=== PATIENT | male | born 1945 | race Caucasian/White ===

== ENCOUNTER 2018-11-07 15:17 | Emergency (ER) | payer MEDICARE, BC ==
[2018-11-07] MEDS ORDERED: NS 0.9% 1000 ML* 1,000 ML IV ONE (16:07)
[2018-11-07] MEDS ORDERED: Ondansetron ODT TAB* 4 MG PO ONE ×2 (16:07→19:44)
[2018-11-07 16:08] LABS: ABS Basophils 0 10^3/ul (0-0.2); ABS Eosinophils 0.1 10^3/ul (0-0.6); ABS Lymphocytes 0.5 10^3/ul (1.0-4.8); ABS Monocytes 0.4 10^3/ul (0-0.8); ABS Neutrophils 10.4 10^3/ul (1.5-7.7); ABS Nucleated RBC 0 10^3/ul; Eosinophil % 0.6 %; Hematocrit 43 % (42-52); Hemoglobin 14.4 g/dl (14.0-18.0); Lymphocyte % 4.2 %; Mean Corpuscular HGB Conc 34 g/dl (31-36); Mean Corpuscular Hemoglobin 31 pg (27-31); Mean Corpuscular Volume 92 fL (80-94); Mean Platelet Volume 9.5 fL (7.4-10.4); Nucleated Red Blood Cells % 0; Platelet Count 171 10^3/ul (150-450); Red Blood Count 4.67 10^6/ul (4.00-5.40); Red Cell Distribution Width 13 % (10.5-15); White Blood Count 11.4 10^3/ul (3.5-10.8)
[2018-11-07 16:23] LABS: Albumin/Globulin Ratio 1.4 (1-3); C Reactive Protein 18.93 mg/L (<8.01); Calcium 9.1 mg/dL (8.6-10.3); EGFR Non-African American 109.1 (>60); Globulin 2.8 g/dL (2-4); Potassium 4.1 mmol/L (3.5-5.0); Total Bilirubin 0.8 mg/dL (0.2-1.0); Total Protein 6.8 g/dL (6.4-8.9)
[2018-11-07 16:35] LABS: Urine Appearance Cloudy; Urine Bacteria Absent (Absent); Urine Bilirubin Negative (Negative); Urine Blood 1+ (Negative); Urine Color Amber; Urine Glucose Negative (Negative); Urine Ketones 1+ (Negative); Urine Nitrite Negative (Negative); Urine Protein 1+(30 mg/dL) (Negative); Urine Red Blood Cell 2+(6-10/hpf) (Absent); Urine Specific Gravity 1.029 (1.010-1.030); Urine Urobilinogen Negative (Negative); Urine White Blood Cell 1+(6-10/hpf) (Absent)
--- NOTE | 2018-11-07 18:01 | ED ---
Nausea/Vomiting/Diarrhea HPI - HPI Summary HPI Summary: Patient complains of 3 episodes of vomiting today, which last 2 episodes emesis positive for blood. Family states about 2-3 tablespoons of blood in third emesis. First emesis at 5:30 AM, second emesis 11:30 AM, third emesis at 3 PM. Denies persistent nausea, nausea only just prior to vomiting. No anti-coag. Patient denies fever, abdominal pain, blood in stool, symptoms of illness, cough , sore throat, CP, SOB, diarrhea, urine symptoms. Medical history COPD. Abdominal surgical history is none. Positive smoker. Denies EtOH, recreational drug use. - History of Current Complaint Chief Complaint: EDNauseaVomitDiarrh Stated Complaint: VOMITTING BLOOD Time Seen by Provider: 11/07/18 15:47 Hx Obtained From: Patient, Family/Plate Straightener Onset/Duration: Sudden Onset Timing: Intermittent Episodes Lasting: Severity Currently: None Pain Intensity: 0 Pain Scale Used: 0-10 Numeric Aggravating Factor(s): Nothing Alleviating Factor(s): Nothing Nausea/Vomiting Presence: Vomiting Vomiting Frequency: Every 3-4 hours Vomiting Characteristics: Nonbilious Diarrhea Presence: No - Allergies/Home Medications Allergies/Adverse Reactions: Allergies Allergy/AdvReac Type Severity Reaction Status Date / Time lactase [From [employer]] Allergy GI Upset Verified 11/07/18 15:26 PMH/Surg Hx/FS Hx/Imm Hx Endocrine/Hematology History: Denies: Hx Anticoagulant Therapy Cardiovascular History: Denies: Hx Cardiac Arrest History: Denies: Hx Dialysis EENT History: Denies: Hx Deafness Neurological History: Denies: Hx CVA Psychiatric History: Denies: Hx Autism Infectious Disease History: No Infectious Disease History: Denies: Traveled Outside the [place] in Last 30 Days - Family History Known Family History: Positive: Unknown - Social History Occupation: Employed Full-time Lives: With Family Alcohol Use: None Substance Use Type: Reports: None Smoking Status (MU): Light Every Day Tobacco Smoker Review of Systems Constitutional: Negative Eyes: Negative ENT: Negative Cardiovascular: Negative Respiratory: Negative Positive: Vomiting, Nausea Genitourinary: Negative Musculoskeletal: Negative Skin: Negative Neurological: Negative Psychological: Normal All Other Systems Reviewed And Are Negative: Yes Physical Exam Triage Information Reviewed: Yes Vital Signs On Initial Exam: Initial Vitals Temp Pulse Resp BP Pulse Ox 98.5 F 106 16 124/78 94 11/07/18 15:21 11/07/18 15:21 11/07/18 15:21 11/07/18 15:21 11/07/18 15:21 Vital Signs Reviewed: Yes Appearance: Positive: Well-Appearing Skin: Positive: Warm Head/Face: Positive: Normal Head/Face Inspection Eyes: Positive: Normal ENT: Positive: Normal ENT inspection Neck: Positive: Supple Respiratory/Lung Sounds: Positive: Clear to Auscultation Cardiovascular: Positive: Normal Abdomen Description: Positive: Nontender Musculoskeletal: Positive: Normal Neurological: Positive: Normal Psychiatric: Positive: Normal AVPU Assessment: Alert - [place] Coma Scale Best Eye Response: 4 - Spontaneous Best Motor Response: 6 - Obeys Commands Best Verbal Response: 5 - Oriented Coma Scale Total: 15 Diagnostics - Vital Signs Vital Signs Temp Pulse Resp BP Pulse Ox 11/07/18 17:04 74 118/67 95 11/07/18 17:00 73 94 11/07/18 16:34 93 110/70 95 11/07/18 16:05 109 136/68 95 11/07/18 16:00 87 94 11/07/18 15:47 88 96 11/07/18 15:21 98.5 F 106 16 124/78 94 - Laboratory Lab Results: Lab Results 11/07/18 11/07/18 11/07/18 Range/Units 16:00 16:00 16:20 WBC 11.4 H (3.5-10.8) 10^3/ul RBC 4.67 (4.00-5.40) 10^6/ul Hgb 14.4 (14.0-18.0) g/dl Hct 43 (42-52) % MCV 92 (80-94) fL MCH 31 (27-31) pg MCHC 34 (31-36) g/dl RDW 13 (10.5-15) % Plt Count 171 (150-450) 10^3/ul MPV 9.5 (7.4-10.4) fL Neut % (Auto) 91.4 % Lymph % (Auto) 4.2 % [place] % (Auto) 3.7 % Eos % (Auto) 0.6 % Baso % (Auto) 0.1 % Absolute Neuts (auto) 10.4 H (1.5-7.7) 10^3/ul Absolute Lymphs (auto) 0.5 L (1.0-4.8) 10^3/ul Absolute Monos (auto) 0.4 (0-0.8) 10^3/ul Absolute Eos (auto) 0.1 (0-0.6) 10^3/ul Absolute Basos (auto) 0 (0-0.2) 10^3/ul Absolute Nucleated RBC 0 10^3/ul Nucleated RBC % 0 Sodium 138 (135-145) mmol/L Potassium 4.1 (3.5-5.0) mmol/L Chloride 104 (101-111) mmol/L Carbon Dioxide 26 (22-32) mmol/L Anion Gap 8 (2-11) mmol/L BUN 22 (6-24) mg/dL Creatinine 0.71 (0.67-1.17) mg/dL Est GFR ( Amer) 132.0 (>60) Est GFR (Non-Af Amer) 109.1 (>60) BUN/Creatinine Ratio 31.0 H (8-20) Glucose 120 H (70-100) mg/dL Calcium 9.1 (8.6-10.3) mg/dL Total Bilirubin 0.80 (0.2-1.0) mg/dL AST 21 (13-39) U/L ALT 16 (7-52) U/L Alkaline Phosphatase 63 (34-104) U/L C-Reactive Protein 18.93 H (<8.01) mg/L Total Protein 6.8 (6.4-8.9) g/dL Albumin 4.0 (3.2-5.2) g/dL Globulin 2.8 (2-4) g/dL Albumin/Globulin Ratio 1.4 (1-3) Urine Color [place] Urine Appearance Cloudy Urine pH 5.0 (5-9) Ur Specific [place] 1.029 (1.010-1.030) Urine Protein 1+(30 mg/dl) A (Negative) Urine Ketones 1+ A (Negative) Urine Blood 1+ A (Negative) Urine Nitrate Negative (Negative) Urine Bilirubin Negative (Negative) Urine Urobilinogen Negative (Negative) Ur Leukocyte Esterase 1+ A (Negative) Urine WBC (Auto) 1+(6-10/hpf) A (Absent) Urine RBC (Auto) 2+(6-10/hpf) A (Absent) Ur Squamous Epith Cells Present A (Absent) Urine Bacteria Absent (Absent) Urine Glucose Negative (Negative) Urine Ascorbic Acid * A (Negative) Result Diagrams: 11/07/18 16:00 11/07/18 16:00 Lab Statement: Any lab studies that have been ordered have been reviewed, and results considered in the medical decision making process. Naus/Vom/Diarrhea Course/Dx - Course Course Of Treatment: Patient complains of 3 episodes of vomiting today, which last 2 episodes emesis positive for blood. Family states about 2-3 tablespoons of blood in third emesis. First emesis at 5:30 AM, second emesis 11:30 AM, third emesis at 3 PM. Denies persistent nausea, nausea only just prior to vomiting. No anti-coag. Patient denies fever, abdominal pain, blood in stool, symptoms of illness, cough, sore throat, CP, SOB, diarrhea, urine symptoms. Medical history COPD. Abdominal surgical history is none. Positive smoker. Denies EtOH, recreational drug use. Physical exam unremarkable. Vital signs within normal limits and stable. WBC 11.4. Creatinine 18. BUN/creatinine ratio 30. Labs otherwise unremarkable. No nausea, vomiting or hematemesis here in ED. Symptoms controlled with Zofran. Patient continues to be otherwise asymptomatic. CT chest negative for acute process or mass.. EKG sinus rhythm Incidental finding of 2 small hypodensities in the liver. Radiology recommends urgent ultrasound follow-up. Patient has been advised of incidental finding. Also advised to follow-up with GI fever here [facility] should hematemesis continue. Also advised to return to the ED for any new or concerning symptoms. Patient and family understand and approve plan. - Differential Dx/Diagnosis Provider Diagnosis: Nausea and vomiting, Hematemesis/vomiting blood Condition At Discharge: Stable Discharge - Sign-Out/Discharge Documenting (check all that apply): Patient Departure - Discharge Plan Condition: Stable Disposition: HOME Prescriptions: Ondansetron ODT TAB* [Zofran 4 MG Odt TAB*] 4 mg PO Q8H PRN 4 Days #14 tab.odt PRN Reason: Nausea Patient Education Materials: Acute Nausea and Vomiting (ED), Hematemesis (ED) Referrals: No Primary Care Phys,NOPCP [Primary Care Provider] - Dariusz De La Cruz DO [Doctor of Osteopathy] - Additional Instructions: If symptoms persist follow-up with GI Dr. Shanks here in [place] or with your GI back in [place] for further evaluation. Return to the ED for any new or worsening symptoms. Incidental finding on CT of chest of 2 small hypodensities on liver. One consistent with a cyst. Second could represent complex cyst, hemangioma or small solid lesion. Radiology suggests follow-up with nonemergent ultrasound. - Billing Disposition and Condition Condition: STABLE Disposition: Home
[2018-11-07] MEDS ORDERED: Iohexol 300* (CONTRAST) 10 ML SDV IV ONE (18:03)
[2018-11-07 19:50] VITALS: BP 108/63
[2018-11-07 19:51] LABS: INR 1.01 (0.77-1.02)
--- NOTE | 2018-11-10 06:22 | ED ---
Progress - Progress Note Progress Note: Patient's preliminary culture reveals 10-25,000 enterococcus Faecalis. Patient patient was seen for nausea vomiting and hematemesis. Referred to GI. With lack of urinary symptoms and low bacterial counts, treatment most likely not necessary. Final results pending. Course/Dx - Course Course Of Treatment: Patient complains of 3 episodes of vomiting today, which last 2 episodes emesis positive for blood. Family states about 2-3 tablespoons of blood in third emesis. First emesis at 5:30 AM, second emesis 11:30 AM, third emesis at 3 PM. Denies persistent nausea, nausea only just prior to vomiting. No anti-coag. Patient denies fever, abdominal pain, blood in stool, symptoms of illness, cough, sore throat, CP, SOB, diarrhea, urine symptoms. Medical history COPD. Abdominal surgical history is none. Positive smoker. Denies EtOH, recreational drug use. Physical exam unremarkable. Vital signs within normal limits and stable. WBC 11.4. Creatinine 18. BUN/creatinine ratio 30. Labs otherwise unremarkable. No nausea, vomiting or hematemesis here in ED. Symptoms controlled with Zofran. Patient continues to be otherwise asymptomatic. CT chest negative for acute process or mass.. EKG sinus rhythm Incidental finding of 2 small hypodensities in the liver. Radiology recommends urgent ultrasound follow-up. Patient has been advised of incidental finding. Also advised to follow-up with GI fever here [facility] should hematemesis continue. Also advised to return to the ED for any new or concerning symptoms. Patient and family understand and approve plan. - Diagnoses Provider Diagnoses: Nausea and vomiting, Hematemesis/vomiting blood Discharge - Sign-Out/Discharge Documenting (check all that apply): Post-Discharge Follow Up - Discharge Plan Condition: Stable Disposition: HOME Prescriptions: Ondansetron ODT TAB* [Zofran 4 MG Odt TAB*] 4 mg PO Q8H PRN 4 Days #14 tab.odt PRN Reason: Nausea Patient Education Materials: Acute Nausea and Vomiting (ED), Hematemesis (ED) Referrals: Dariusz De La Cruz DO [Doctor of Osteopathy] - No Primary Care Phys,NOPCP [Primary Care Provider] - Additional Instructions: If symptoms persist follow-up with GI Dr. Shanks here in [place] or with your GI back in [place] for further evaluation. Return to the ED for any new or worsening symptoms. Incidental finding on CT of chest of 2 small hypodensities on liver. One consistent with a cyst. Second could represent complex cyst, hemangioma or small solid lesion. Radiology suggests follow-up with nonemergent ultrasound. - Billing Disposition and Condition Condition: STABLE Disposition: Home
--- NOTE | 2018-11-11 05:55 | PN ---
Progress Note - Progress Note Date of Service: 11/07/18 Note: Sensitivities returned. Enterococcus organism on final urine culture, 10-25,000 Treatment is not necessary at this time, and patient was asymptomatic of UTI symptoms during ED visit
== END 2018-11-07 19:50 | disposition home or self-care (01) ==
LOC: ED 15:17
DX: K92.0 Hematemesis (principal); J44.9 Chronic obstructive pulmonary disease, unspecified; Z72.0 Tobacco use; R93.2 Abnormal findings on diagnostic imaging of liver and biliary tract
CPT/HCPCS: 36415; 71260; 80053; 81003; 81015; 85025; 85610; 86140; 87077; 87086; 87186; 93005; 96361; 96374; 99283; A9270-GY; Q9967